=== PATIENT | male | born 1945 | race Caucasian/White ===

== ENCOUNTER → 2016-12-17 | Outpatient (CLI) | payer MEDICARE ==
--- NOTE | 2016-12-17 09:51 | FL ---
EXAMINATION: Cervical and Thoracic Esophagram DATE OF EXAM: 12/17/2016 9:42 AM CLINICAL INDICATION: 71-year-old male with dysphasia to solid foods with sticking at the mid chest [place]. COMPARISON: None Total Fluoroscopy Time: 1.8 minutes FINDINGS: The swallowing mechanism is normal and hypopharyngeal anatomy is preserved. The cervical and thoracic portions have a normal course and caliber. No significant tertiary peristalsis is seen. However, secondary stripping waves are slightly blunted causing some delay in clearance of contrast from the esophagus when the patient is supine. The mucosa is normal and no persistent filling defect is encountered. There is a moderate-sized hiatal hernia. Valsalva and positional maneuvers demonstrate mild gastroeso phageal reflux. IMPRESSION: 1. No suspicious narrowing or mucosal lesion seen. 2. Moderate-sized hiatal hernia with mild gastroesophageal reflux. 3. Slight blunting of the normal secondary stripping waves causing some delay in clearance of contras t when the patient is supine.
== END | disposition home or self-care (01) ==
LOC: RADFLWHC 08:46
PROVIDERS: ATTEND Family Medicine
DX: K21.9 Gastro-esophageal reflux disease without esophagitis (principal); K44.9 Diaphragmatic hernia without obstruction or gangrene
CPT/HCPCS: 74220

== ENCOUNTER 2017-01-27 10:17 | Observation (INO) | payer MEDICARE ==
[2017-01-27] MEDS ORDERED: SODIUM CHLORIDE 0.9% 1,000 ML IV STA (10:26)
--- NOTE | 2017-01-27 10:30 | ED ---
General Adult HPI - General Chief complaint: Back Pain/Injury Stated complaint: Back Pain Time Seen by Provider: 01/27/17 10:19 Source: patient, family, RN notes reviewed Mode of arrival: EMS Limitations: no limitations - History of Present Illness Initial comments: Chief complaint and history of present illness this is a 71-year-old male here with his . The patient reports he was feeling well this morning. Became mildly diaphoretic mildly nauseated. He also states that for the past several months she's been not in general feeling well he describes as feeling fuzzy in the morning for 3 hours and he gets better in the afternoon. he reports she had a stress test several weeks ago he does not know the results as of yet. He does state is able to walk up and down stairs most long walk around his property without chest pain or problems. - Related Data Allergies Allergy/AdvReac Type Severity Reaction Status Date / Time No Known Allergies Allergy Verified 01/27/17 10:27 Review of Systems ROS Statement: Those systems with pertinent positive or pertinent negative responses have been documented in the HPI. Review of systems. No headache or visual acuity changes. No chest pain complained of. Denies any pressure. Has mid back discomfort. 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 Nausea earlier mildly sweaty but again without any pressures anywhere. Slight dizziness at that time. No neuro deficits. All systems were reviewed Past medical problems no surgeries. He does get treated for hypertension. He had his metoprolol dropped from 50-25 mg was thinking that over the past several months to metoprolol is making him feel different. Family history noncontributory. Patient has no known ALLERGIES. Nonsmoker ROS Other: All systems not noted in ROS Statement are negative. Past Medical History Past Medical History: Hyperlipidemia, Hypertension History of Any Multi-Drug Resistant Organisms: None Reported Past Surgical History: No Surgical Hx Reported Past Psychological History: No Psychological Hx Reported Smoking Status: Never smoker Past Alcohol Use History: Occasional Past Drug Use History: None Reported General Exam Limitations: no limitations Course Vital Signs 01/27/17 01/27/17 10:21 12:29 Temperature 98.5 F Pulse Rate 98 67 Respiratory 16 16 Rate Blood Pressure 116/66 139/71 O2 Sat by Pulse 97 99 Oximetry EKG Findings - EKG Comments: EKG Findings:: EKG was done and reviewed at 1134 showing normal sinus rhythm is no acute ST elevation no ectopy no ischemic changes. Rate 87 AL interval 208 QRS 94 QT [address] Redman Medical Decision Making - Medical Decision Making Medical decision making; patient's white count is 11 hemoglobin 14 hematocrit of 40 with an elevated d-dimer 2.09. Potassium 4.3 BUN 9 creatinine 0.8 GFR greater than 60. Troponin less than 0.012. Amylase lipase normal limits. The patient did have a TSH done approximately 40 days ago at the time was normal at 0.676.repeat TSH is lower today. And T4 is normal at 0.91. Troponin less than 0.012. CK MB and CK are normal. X-ray of the chest was done AP and lateral views. Reviewed radiologist his findings are; patient is rotated. Probable chondroid lesion in the proximal metaphysis of the right humerus. This isn't completely visualized. There is no pneumothorax or pleural effusion. Pulmonary vascularity and arnaldo within normal limits. No focal pneumonia. Prominent lung biopsy suggest COPD. Impression no acute cardiopulmonary process. Additional findings above. As read by Dr. Herring CT of the chest and abdomen was done to try to rule out evidence of aortic dissection or pulmonary in wasn't. The radiologist's findings are the aorta is of normal caliber. No evidence of aneurysm or dissection. Atherosclerotic changes noted. Pulmonary arteries suboptimally enhanced due to aortic technique. No central pulmonary embolus. Many branches are nondiagnostic. Hypertrophic and degenerative changes of the spine. Gallstones noted. Lungs are clear with no pneumothorax or consolidation. No pleural effusion. The heart is enlarged and there is a hiatal hernia. Bowel gas pattern is nonspecific there is evidence of mild inflammatory changes with a small amount of fluid in the right lower quadrant suspicious for mild diverticulitis. Appendix is not seen. Adrenal glands, spleen, liver and pancreas have normal appearance. No free air. Hiatal hernia noted. Impression #1 no evidence of aortic aneurysm or dissection. #2 central pulmonary arteries are patent. Due to technique secondary to distal branches are nondiagnostic. Cholelithiasis. Number for there is small amount of fluid in the right lower quadrant which appears to be associated with redundant sigmoid colon extending into the right abdomen there is bowel wall thickening and mild inflammatory change. Correlate for diverticulitis. Underlying mucosal lesion or mass not excluded follow-up to resolution or with direct visualization. As read by Dr. Nair patient be admitted and treated for diverticulitis . Serial cardiac enzymes and troponin will also be requested. - Lab Data Result diagrams: 01/27/17 10:33 01/27/17 10:33 Lab Results 01/27/17 01/27/17 01/27/17 Range/Units 10:33 10:33 10:33 WBC 11.2 H (3.8-10.6) k/uL RBC 4.24 L (4.30-5.90) m/uL Hgb 14.6 (13.0-17.5) gm/dL Hct 40.8 (39.0-53.0) % MCV 96.3 (80.0-100.0) fL MCH 34.4 (25.0-35.0) pg MCHC 35.8 (31.0-37.0) g/dL RDW 12.9 (11.5-15.5) % Plt Count 209 (150-450) k/uL Neutrophils % 93 % Lymphocytes % 1 % Monocytes % 4 % Eosinophils % 1 % Basophils % 0 % Neutrophils # 10.4 H (1.3-7.7) k/uL Lymphocytes # 0.1 L (1.0-4.8) k/uL Monocytes # 0.5 (0-1.0) k/uL Eosinophils # 0.1 (0-0.7) k/uL Basophils # 0.0 (0-0.2) k/uL Manual Slide Review Performed Toxic Granulation Present PT (9.0-12.0) sec INR (<1.1) APTT (22.0-30.0) sec D-Dimer (<0.60) mg/L FEU Sodium 135 L (137-145) mmol/L Potassium 4.3 (3.5-5.1) mmol/L Chloride 99 (98-107) mmol/L Carbon Dioxide 27 (22-30) mmol/L Anion Gap 9 mmol/L BUN 16 (9-20) mg/dL Creatinine 0.80 (0.66-1.25) mg/dL Est GFR (MDRD) Af Amer >60 (>60 ml/min/1.73 sqM) Est GFR (MDRD) Non-Af >60 (>60 ml/min/1.73 sqM) Glucose 112 H (74-99) mg/dL Calcium 8.6 (8.4-10.2) mg/dL Magnesium 1.7 (1.6-2.3) mg/dL Total Bilirubin 0.5 (0.2-1.3) mg/dL AST 18 (17-59) U/L ALT 28 (21-72) U/L Alkaline Phosphatase 69 (38-126) U/L Total Creatine Kinase 94 (55-170) U/L CK-MB (CK-2) 1.1 (0.0-2.4) ng/mL CK-MB (CK-2) Rel Index 1.2 Troponin I <0.012 (0.000-0.034) ng/mL NT-Pro-B Natriuret Pep pg/mL Total Protein 6.3 (6.3-8.2) g/dL Albumin 4.0 (3.5-5.0) g/dL Amylase 59 (30-110) U/L Lipase 62 (23-300) U/L TSH 0.274 L (0.465-4.680) mIU/L Free T4 0.91 (0.78-2.19) ng/dL Urine Color Urine Appearance (Clear) Urine pH (5.0-8.0) Ur Specific [place] (1.001-1.035) Urine Protein (Negative) Urine Glucose (UA) (Negative) Urine Ketones (Negative) Urine Blood (Negative) Urine Nitrite (Negative) Urine Bilirubin (Negative) Urine Urobilinogen (<2.0) mg/dL Ur Leukocyte Esterase (Negative) 01/27/17 01/27/17 01/27/17 Range/Units 10:33 10:33 12:45 WBC (3.8-10.6) k/uL RBC (4.30-5.90) m/uL Hgb (13.0-17.5) gm/dL Hct (39.0-53.0) % MCV (80.0-100.0) fL MCH (25.0-35.0) pg MCHC (31.0-37.0) g/dL RDW (11.5-15.5) % Plt Count (150-450) k/uL Neutrophils % % Lymphocytes % % Monocytes % % Eosinophils % % Basophils % % Neutrophils # (1.3-7.7) k/uL Lymphocytes # (1.0-4.8) k/uL Monocytes # (0-1.0) k/uL Eosinophils # (0-0.7) k/uL Basophils # (0-0.2) k/uL Manual Slide Review Toxic Granulation PT 9.6 (9.0-12.0) sec INR 0.9 (<1.1) APTT 22.1 (22.0-30.0) sec D-Dimer 2.09 H (<0.60) mg/L FEU Sodium (137-145) mmol/L Potassium (3.5-5.1) mmol/L Chloride (98-107) mmol/L Carbon Dioxide (22-30) mmol/L Anion Gap mmol/L BUN (9-20) mg/dL Creatinine (0.66-1.25) mg/dL Est GFR (MDRD) Af Amer (>60 ml/min/1.73 sqM) Est GFR (MDRD) Non-Af (>60 ml/min/1.73 sqM) Glucose (74-99) mg/dL Calcium (8.4-10.2) mg/dL Magnesium (1.6-2.3) mg/dL Total Bilirubin (0.2-1.3) mg/dL AST (17-59) U/L ALT (21-72) U/L Alkaline Phosphatase (38-126) U/L Total Creatine Kinase (55-170) U/L CK-MB (CK-2) (0.0-2.4) ng/mL CK-MB (CK-2) Rel Index Troponin I (0.000-0.034) ng/mL NT-Pro-B Natriuret Pep 81 pg/mL Total Protein (6.3-8.2) g/dL Albumin (3.5-5.0) g/dL Amylase (30-110) U/L Lipase (23-300) U/L TSH (0.465-4.680) mIU/L Free T4 (0.78-2.19) ng/dL Urine Color Yellow Urine Appearance Clear (Clear) Urine pH 7.0 (5.0-8.0) Ur Specific [place] 1.020 (1.001-1.035) Urine Protein Trace H (Negative) Urine Glucose (UA) Negative (Negative) Urine Ketones Negative (Negative) Urine Blood Negative (Negative) Urine Nitrite Negative (Negative) Urine Bilirubin Negative (Negative) Urine Urobilinogen <2.0 (<2.0) mg/dL Ur Leukocyte Esterase Negative (Negative) Disposition Clinical Impression: Rectosigmoid diverticulitis Disposition: ADMITTED IP TO THIS HOSP Condition: Fair Referrals: Maria E Lawler DO [Primary Care Provider] - 1-2 days
[2017-01-27 10:50] LABS: Basophils % (A) 0 %; CH 34.3; CHCM 35.7; Eosinophils # (A) 0.1 k/uL (0-0.7); Eosinophils % (A) 1 %; HCT 40.8 % (39.0-53.0); HDW 2.54; HGB 14.6 gm/dL (13.0-17.5); Luc # (Auto) 0.06; Luc % (Auto) 1; Lymphocytes # (A) 0.1 k/uL (1.0-4.8); Lymphocytes % (A) 1 %; MCH 34.4 pg (25.0-35.0); MCHC 35.8 g/dL (31.0-37.0); MCV 96.3 fL (80.0-100.0); Mean Platelet Volume 6.4; Monocytes # (A) 0.5 k/uL (0-1.0); Monocytes % (A) 4 %; Neutrophils # (A) 10.4 k/uL (1.3-7.7); Neutrophils % (A) 93 %; RBC 4.24 m/uL (4.30-5.90); RDW 12.9 % (11.5-15.5); WBC 11.2 k/uL (3.8-10.6); WBC (Perox) 11.47
[2017-01-27 10:59] LABS: ALT 28 U/L (21-72); AST 18 U/L (17-59); Alkaline Phosphatase 69 U/L (38-126); Amylase 59 U/L (30-110); Anion Gap 9 mmol/L; Blood Urea Nitrogen 16 mg/dL (9-20); Calcium 8.6 mg/dL (8.4-10.2); Carbon Dioxide 27 mmol/L (22-30); Chloride 99 mmol/L (98-107); Glucose 112 mg/dL (74-99); Magnesium 1.7 mg/dL (1.6-2.3); Non-African American GFR(MDRD) >60 (>60 ml/min/1.73 sqM); Potassium 4.3 mmol/L (3.5-5.1); Sodium 135 mmol/L (137-145); Total Bilirubin 0.5 mg/dL (0.2-1.3); Total Protein 6.3 g/dL (6.3-8.2)
--- NOTE | 2017-01-27 10:59 | XR ---
EXAMINATION TYPE: XR chest 2V DATE OF EXAM: 01/27/2017 COMPARISON: NONE HISTORY: Chest pain and nausea TECHNIQUE: Frontal and lateral views of the chest are obtained. FINDINGS: Patient is rotated. Probable chondroid lesion in the proximal metaphysis of the right chelita johnson. This is incompletely visualized. There is no pneumothorax or pleural effusion. Pulmonary vascula rity and arnaldo within normal limits. No focal pneumonia. Prominent lung volumes suggest COPD. IMPRESSION: No acute cardiopulmonary process. Additional findings above.
[2017-01-27 11:03] LABS: Creatine Kinase 94 U/L (55-170)
[2017-01-27 11:04] LABS: Manual Review Performed
[2017-01-27 11:05] LABS: INR 0.9 (<1.1); Partial Thromboplastin Time 22.1 sec (22.0-30.0); Prothrombin Time 9.6 sec (9.0-12.0); Toxic Granulation Present
[2017-01-27 11:16] LABS: Creatine Kinase MB 1.1 ng/mL (0.0-2.4); Troponin I <0.012 ng/mL (0.000-0.034)
[2017-01-27] MEDS ORDERED: RX INFO: IV CONTRAST WAS GIVEN 1 EACH MISC MISCELLANE PRN (11:39)
[2017-01-27 12:54] LABS: Appearance,Urine Clear (Clear); Bilirubin,Urine Negative (Negative); Glucose,Urine (UA) Negative (Negative); Ketones,Urine Negative (Negative); Leukocyte Esterase,Urine Negative (Negative); Nitrite,Urine Negative (Negative); Protein,Urine Trace (Negative); UA Billing (MACRO vs. MICRO) CHEM; Urobilinogen,Urine <2.0 mg/dL (<2.0)
--- NOTE | 2017-01-27 13:18 | CT ---
EXAMINATION TYPE: CT angio thoracic/abd aorta DATE OF EXAM: 01/27/2017 12:56 PM COMPARISON: NONE HISTORY: Middle back pain and elevated Ddimer CT DLP: 1990.7 mGycm Automated exposure control for dose reduction was used. TECHNIQUE: Performed without and with IV Contrast, patient injected with 100 mL of Omnipaque 350. . FINDINGS: Aorta is of normal caliber. No evidence of aneurysm or dissection. Atherosclerotic changes noted. Pulmonary arteries are suboptimally enhanced due to aortic technique. No central pulmonary embolism. Many branches are nondiagnostic. Hypertrophic and degenerative change of the spine. Gallstones noted. Lungs are clear with no pneumothorax or consolidation. No pleural effusion. The heart is enlarged and there is a hiatal hernia. Bowel gas pattern is nonspecific there is evidence of mild inflammatory change with a small amount of fluid in the right lower quadrant suspicious for mild diverticulitis. Appendix is not seen. Adrenal glands, spleen, liver and pancreas have a normal appearance. No free air. Hiatal hernia noted. IMPRESSION: 1. No evidence of aortic aneurysm or dissection. 2. Central pulmonary arteries are patent. Due to technique secondary and distal branches are nondiagn ostic. 3. Cholelithiasis. 4. There is a small amount of fluid in the right lower quadrant which appears to be associated with a n redundant sigmoid colon extending into the right abdomen there is bowel wall thickening and mild in flammatory change. Correlate for diverticulitis. Underlying mucosal lesion or mass not excluded follo w-up to resolution or with direct visualization.
[2017-01-27] MEDS ORDERED: HYDROmorphone 1 MG/ML 1 ML SYRINGE IV PRN (13:42)
[2017-01-27] MEDS ORDERED: NALOXONE 0.4 MG/ML 1 ML VIAL IV PRN (13:42)
[2017-01-27] MEDS ORDERED: ONDANSETRON 4 MG/2 ML VIAL IVP PRN (13:42)
[2017-01-27] MEDS ORDERED: LEVOFLOXACIN 500MG-D5W PMX 500 MG in DEXTROSE/WATER 1 100ML.BAG IVPB STA (13:46)
[2017-01-27] MEDS ORDERED: METOCLOPRAMIDE 5 MG/ML 2 ML VIAL IVP PRN (13:47)
[2017-01-27] MEDS ORDERED: metroNIDAZOLE-NS PMX 500 MG in SALINE 1 100ML.BAG IVPB STA (13:48)
[2017-01-27] MEDS: SODIUM CHLORIDE 0.9% 1,000 ML IV SCH (13:51)
[2017-01-27 14:48] VITALS: BMI 30.6
[2017-01-27] MEDS ORDERED: ACETAMINOPHEN TAB 500 MG TAB PO PRN (15:45)
[2017-01-27] MEDS ORDERED: HYDROcodone/APAP 5-325MG 1 EACH TAB PO PRN (15:46)
[2017-01-27 16:32] LABS: Creatine Kinase 77 U/L (55-170)
[2017-01-27 16:45] LABS: Creatine Kinase MB 0.8 ng/mL (0.0-2.4); Troponin I <0.012 ng/mL (0.000-0.034)
[2017-01-27] MEDS ORDERED: TEMAZEPAM 15 MG CAP PO PRN (20:09)
[2017-01-27] MEDS ORDERED: ALPRAZolam 0.25 MG TAB PO PRN (20:09)
[2017-01-27] MEDS: ATORVASTATIN 10 MG TAB PO SCH (21:10)
[2017-01-27] MEDS: HEPARIN SODIUM,PORCINE 5,000 UNIT/ML 1 ML VIAL SQ SCH (21:11)
[2017-01-27] MEDS: PIPERACILLIN-TAZOBACTAM 3.375 GM in DEXTROSE/WATER 1 50ML.BAG IVPB SCH (23:42)
[2017-01-28] MEDS: SODIUM CHLORIDE 0.9% 1,000 ML IV SCH ×2 (04:14→17:12)
[2017-01-28 07:40] LABS: Basophils % (A) 0 %; CH 33.8; Eosinophils # (A) 0.1 k/uL (0-0.7); Eosinophils % (A) 1 %; HCT 36.1 % (39.0-53.0); HDW 2.44; HGB 12.1 gm/dL (13.0-17.5); Luc # (Auto) 0.11; Luc % (Auto) 2; Lymphocytes # (A) 0.5 k/uL (1.0-4.8); Lymphocytes % (A) 10 %; MCH 33.5 pg (25.0-35.0); MCHC 33.6 g/dL (31.0-37.0); MCV 99.7 fL (80.0-100.0); Mean Platelet Volume 7.2; Monocytes # (A) 0.4 k/uL (0-1.0); Monocytes % (A) 8 %; Neutrophils # (A) 3.7 k/uL (1.3-7.7); Neutrophils % (A) 79 %; RBC 3.62 m/uL (4.30-5.90); RDW 13.4 % (11.5-15.5); WBC 4.7 k/uL (3.8-10.6); WBC (Perox) 4.96
[2017-01-28 07:46] LABS: Anion Gap 6 mmol/L; Blood Urea Nitrogen 14 mg/dL (9-20); Calcium 7.9 mg/dL (8.4-10.2); Carbon Dioxide 27 mmol/L (22-30); Chloride 102 mmol/L (98-107); Glucose 110 mg/dL (74-99); Non-African American GFR(MDRD) >60 (>60 ml/min/1.73 sqM); Potassium 3.5 mmol/L (3.5-5.1); Sodium 135 mmol/L (137-145)
[2017-01-28] MEDS: METOPROLOL SUCCINATE (ER) 25 MG TAB.ER.24H PO SCH (07:55)
[2017-01-28] MEDS: LISINOPRIL-HCTZ 20-25 MG 1 EACH TAB PO SCH (07:55)
[2017-01-28] MEDS: ASPIRIN 81 MG CHEW PO SCH (07:55)
[2017-01-28] MEDS: DOXAZOSIN 4 MG TAB PO SCH (07:55)
[2017-01-28] MEDS: PIPERACILLIN-TAZOBACTAM 3.375 GM in DEXTROSE/WATER 1 50ML.BAG IVPB SCH ×3 (07:56→23:13)
[2017-01-28] MEDS: HEPARIN SODIUM,PORCINE 5,000 UNIT/ML 1 ML VIAL SQ SCH ×2 (07:56→20:32)
[2017-01-28] MEDS ORDERED: PANTOPRAZOLE 40 MG/10 ML VIAL IV SCH (09:00)
[2017-01-28] MEDS ORDERED: GLUCOSAMINE SULFATE 500 MG PO SCH (09:00)
--- NOTE | 2017-01-28 11:07 | P.GSCN ---
History of Present Illness Consult date: 01/28/17 Reason for Consult: Diverticulitis History of present illness: This is a 71-year-old male who was admitted through the emergency room with complaints of abdominal pain. He is worked up with CAT scan found no evidence of diverticulitis. Patient states that he's had a previous history of diverticulosis for 5 years ago. He denies any significant abdominal pain. Review of Systems - Constitutional Reports as per HPI Past Medical History Past Medical History: Hyperlipidemia, Hypertension History of Any Multi-Drug Resistant Organisms: None Reported Past Surgical History: No Surgical Hx Reported Past Anesthesia/Blood Transfusion Reactions: No Reported Reaction Past Psychological History: No Psychological Hx Reported Smoking Status: Former smoker Past Alcohol Use History: Occasional Past Drug Use History: None Reported - Past Family History Mother Family Medical History: Diabetes Mellitus Additional Family Medical History / Comment(s): History of heart problems. Father Family Medical History: Cancer Additional Family Medical History / Comment(s): of cancer. Medications and Allergies Home Medications Medication Instructions Recorded Confirmed Type Ascorbic Acid [Vitamin C] 500 mg PO DAILY 01/27/17 01/27/17 History Aspirin [Adult Low Dose Aspirin EC] 81 mg PO DAILY 01/27/17 01/27/17 History Doxazosin [Cardura] 4 mg PO DAILY 01/27/17 01/27/17 History Glucosamine Sulfate 500 mg PO DAILY 01/27/17 01/27/17 History Lisinopril-Hctz 20-25 mg 1 tab PO DAILY 01/27/17 01/27/17 History [Zestoretic 20-25] Metoprolol Succinate [Toprol XL] 25 mg PO DAILY 01/27/17 01/27/17 History Simvastatin [Zocor] 20 mg PO HS 01/27/17 01/27/17 History Allergies Allergy/AdvReac Type Severity Reaction Status Date / Time No Known Allergies Allergy Verified 01/27/17 14:49 Surgical - Exam Vital Signs Temp Pulse Resp BP Pulse Ox 98.5 F 98 16 116/66 97 01/27/17 10:21 01/27/17 10:21 01/27/17 10:21 01/27/17 10:21 01/27/17 10:21 - General well developed, no distress - Eyes PERRL - ENT normal pinna - Neck no masses - Respiratory normal expansion - Cardiovascular Rhythm: regular - Abdomen Abdomen: soft, non tender Results - Labs 01/28/17 07:19 01/28/17 07:19 Abnormal Lab Results - Last 24 Hours (Table) 01/27/17 01/27/17 01/27/17 Range/Units 10:33 10:33 10:33 WBC 11.2 H (3.8-10.6) k/uL RBC 4.24 L (4.30-5.90) m/uL Hgb (13.0-17.5) gm/dL Hct (39.0-53.0) % Neutrophils # 10.4 H (1.3-7.7) k/uL Lymphocytes # 0.1 L (1.0-4.8) k/uL D-Dimer 2.09 H (<0.60) mg/L FEU Sodium 135 L (137-145) mmol/L Glucose 112 H (74-99) mg/dL Calcium (8.4-10.2) mg/dL TSH 0.274 L (0.465-4.680) mIU/L Urine Protein (Negative) 01/27/17 01/28/17 01/28/17 Range/Units 12:45 07:19 07:19 WBC (3.8-10.6) k/uL RBC 3.62 L (4.30-5.90) m/uL Hgb 12.1 L (13.0-17.5) gm/dL Hct 36.1 L (39.0-53.0) % Neutrophils # (1.3-7.7) k/uL Lymphocytes # 0.5 L (1.0-4.8) k/uL D-Dimer (<0.60) mg/L FEU Sodium 135 L (137-145) mmol/L Glucose 110 H (74-99) mg/dL Calcium 7.9 L (8.4-10.2) mg/dL TSH (0.465-4.680) mIU/L Urine Protein Trace H (Negative) Diabetes panel 01/27/17 01/28/17 Range/Units 10:33 07:19 Sodium 135 L 135 L (137-145) mmol/L Potassium 4.3 3.5 (3.5-5.1) mmol/L Chloride 99 102 (98-107) mmol/L Carbon Dioxide 27 27 (22-30) mmol/L BUN 16 14 (9-20) mg/dL Creatinine 0.80 0.74 (0.66-1.25) mg/dL Glucose 112 H 110 H (74-99) mg/dL Calcium 8.6 7.9 L (8.4-10.2) mg/dL AST 18 (17-59) U/L ALT 28 (21-72) U/L Alkaline Phosphatase 69 (38-126) U/L Total Protein 6.3 (6.3-8.2) g/dL Albumin 4.0 (3.5-5.0) g/dL Thyroid panel 01/27/17 Range/Units 10:33 TSH 0.274 L (0.465-4.680) mIU/L Calcium panel 01/27/17 01/28/17 Range/Units 10:33 07:19 Calcium 8.6 7.9 L (8.4-10.2) mg/dL Albumin 4.0 (3.5-5.0) g/dL Pituitary panel 01/27/17 01/28/17 Range/Units 10:33 07:19 Sodium 135 L 135 L (137-145) mmol/L Potassium 4.3 3.5 (3.5-5.1) mmol/L Chloride 99 102 (98-107) mmol/L Carbon Dioxide 27 27 (22-30) mmol/L BUN 16 14 (9-20) mg/dL Creatinine 0.80 0.74 (0.66-1.25) mg/dL Glucose 112 H 110 H (74-99) mg/dL Calcium 8.6 7.9 L (8.4-10.2) mg/dL TSH 0.274 L (0.465-4.680) mIU/L Adrenal panel 01/27/17 01/28/17 Range/Units 10:33 07:19 Sodium 135 L 135 L (137-145) mmol/L Potassium 4.3 3.5 (3.5-5.1) mmol/L Chloride 99 102 (98-107) mmol/L Carbon Dioxide 27 27 (22-30) mmol/L BUN 16 14 (9-20) mg/dL Creatinine 0.80 0.74 (0.66-1.25) mg/dL Glucose 112 H 110 H (74-99) mg/dL Calcium 8.6 7.9 L (8.4-10.2) mg/dL Total Bilirubin 0.5 (0.2-1.3) mg/dL AST 18 (17-59) U/L ALT 28 (21-72) U/L Alkaline Phosphatase 69 (38-126) U/L Total Protein 6.3 (6.3-8.2) g/dL Albumin 4.0 (3.5-5.0) g/dL - Imaging CT scan - abdomen: report reviewed (All stones, hiatal hernia, diverticulitis) Assessment and Plan Plan: Diverticula is. Patient will receive IV antibiotics. We will plan for outpatient colonoscopy once medically stable
[2017-01-28] MEDS: ASCORBIC ACID 500 MG TAB PO SCH (11:30)
--- NOTE | 2017-01-28 11:51 | HP ---
DATE OF ADMISSION: 01/27/2017 CHIEF COMPLAINT: Nausea, abdominal pain. HISTORY OF PRESENT ILLNESS: This 71-year-old gentleman with a past medical history of hypertension, hyperlipidemia, history of nicotine dependence, being followed Dr. Lawler in the outpatient setting, apparently overslept yesterday and the patient woke up this morning. The patient had some nausea. The patient felt vomiting, but subsequently patient felt dizzy. The patient had abdominal cramps and pain. The patient had also pain radiating into the scapula. Patient came to [facility] and admitted to the hospital for further evaluation and treatment. The patient had a CT scan of the chest which did not show any acute abnormality including a pulmonary embolism or aortic dissection but however, cholelithiasis and diverticulitis suspected. The patient admitted to the hospital for further evaluation and treatment. There is no history of any fever, rigors. No history of headache, loss of consciousness or seizures. The patient also follows with Dr. Chong in the outpatient setting. Recent stress test results are not available. Past medical history of hypertension, hyperlipidemia, dizziness, recurrent in the morning. Medications prior to admission include: 1. Toprol-XL 25 mg daily. 2. Cardura 4 mg p.o. daily. 3. Ecotrin 81 mg daily. 4. Vitamin C 500 daily. 5. Zocor 20 mg at bedtime. 6. Zestoretic 06/25 one p.o. daily. 7. Glucosamine 500 mg p.o. daily. ALLERGIES: None. FAMILY HISTORY: History of diabetes mellitus and cardiac problems. SOCIAL HISTORY: The patient is a jarrett. Previous history of smoking. No history of current smoking or alcohol intake. REVIEW OF SYSTEMS: ENT: No diminishing hearing. No diminished vision. CARDIOVASCULAR: As mentioned earlier. RESPIRATORY: As mentioned earlier. GI: As mentioned earlier. : No dysuria. Nervous system: No numbness, weakness. Allergy/Immunology: No asthma or hayfever. MUSCULOSKELETAL: As mentioned earlier. HEMATOLOGY/ONCOLOGY: No history of anemia. ENDOCRINE: No history of diabetes or hypothyroidism. CONSTITUTIONAL: As mentioned earlier. DERMATOLOGY: Negative. RHEUMATOLOGY: Negative. PSYCHIATRY: As mentioned earlier. PHYSICAL EXAMINATION: The patient is alert and oriented times three. Pulse 93, blood pressure 103/64. Temperature 98.8, pulse ox 94% on room air. HEENT: Conjunctivae normal. NECK: No jugular venous distention. CARDIOVASCULAR: S1, S2 muffled. No S3, no S4. RESPIRATORY: Breath sounds diminished at the bases. Bilateral scattered rhonchi and crackles. ABDOMEN: Soft, mild diffuse distention. Mild diffuse discomfort on palpation. No guarding. No rigidity. No mass palpable. Legs: No edema, no swelling. CENTRAL NERVOUS SYSTEM: Higher functions as mentioned earlier. Moves all four limbs. No focal deficits. LYMPHATICS: No lymph nodes palpable in the neck, axillae or groin. SKIN: No ulcer, rash or bleeding. LABS: WBC 11.2, hemoglobin 14.6. D-dimer is 2.6. Sodium 135, glucose 112. The TSH 0.2750 and free T4 is 0.9. UA noted. ASSESSMENT: 1. Acute abdominal pain, possible acute diverticulitis with severe acute respiratory syndrome. 2. Increased WBC. 3. Interscapular pain without any evidence of myocardial infarction. 4. Increased d-dimer with no evidence of pulmonary embolism. 5. Hyponatremia. 6. History of recent stress test. 7. Hypertension, essential. 8. Hyperlipidemia. 9. Remote history of nicotine dependence. 10. FULL CODE. RECOMMENDATIONS AND DISCUSSION: In this 71-year-old gentleman who presented with multiple complex medical issues, we will monitor the patient closely. Continue current medications. Continue symptomatic treatment. Broad spectrum IV antibiotics. Cultures. I would also recommend surgical evaluation. One set of Troponins. Otherwise, guarded prognosis. I would also recommend cultures as well. Symptomatic treatment will be provided. Copy of dictation being forwarded to Dr. Lawler who is the primary physician. See orders for further details.
--- NOTE | 2017-01-28 18:57 | PN ---
DATE OF SERVICE: 01/28/2017 This 71-year-old gentleman who was admitted with nausea and abdominal pain, possible acute diverticulitis, treated with IV antibiotics. Patient improved significantly. No chest pain. No palpitations. No fever. On exam, alert, oriented x3. Pulse 62, blood pressure 130/60, respirations 16, temperature 97.9, pulse ox 96% on room air. HEENT: Conjunctivae normal. NECK: Supple. No JVD. CARDIOVASCULAR: S1 and S2 muffled. LUNGS: Breath sounds diminished in the bases. No rhonchi, no crackles. ABDOMEN: Soft, nontender. No mass palpable. EXTREMITIES: No edema. LABS: WBC 4.7, hemoglobin 12.1, sodium 135. ASSESSMENT: 1. Acute abdominal pain with possible acute diverticulitis with SIRS, present on admission. 2. Increased WBC. 3. Intrascapular pain without evidence of myocardial infarction. 4. Increased d-dimer without evidence of pulmonary embolism. 5. Hyponatremia. 6. History of recent stress test. 7. Hypertension, essential. 8. Hyperlipidemia. 9. Remote history of nicotine dependence. 10. Full code. RECOMMENDATIONS AND DISCUSSION: Continue current medications. Continue with monitoring and symptomatic treatment. Otherwise at this time I would recommend to continue with IV antibiotics. Continue with the diet per surgery. Guarded prognosis. Further recommendations to follow. Discussed with family who understand.
[2017-01-28 19:48] LABS: Creatine Kinase 65 U/L (55-170)
[2017-01-28 20:00] LABS: Troponin I <0.012 ng/mL (0.000-0.034)
[2017-01-28] MEDS: ATORVASTATIN 10 MG TAB PO SCH (20:32)
[2017-01-29] MEDS: SODIUM CHLORIDE 0.9% 1,000 ML IV SCH (04:20)
[2017-01-29] MEDS: HEPARIN SODIUM,PORCINE 5,000 UNIT/ML 1 ML VIAL SQ SCH (08:08)
[2017-01-29] MEDS: PIPERACILLIN-TAZOBACTAM 3.375 GM in DEXTROSE/WATER 1 50ML.BAG IVPB SCH (08:08)
[2017-01-29] MEDS: DOXAZOSIN 4 MG TAB PO SCH (08:09)
[2017-01-29] MEDS: ASPIRIN 81 MG CHEW PO SCH (08:09)
[2017-01-29] MEDS: METOPROLOL SUCCINATE (ER) 25 MG TAB.ER.24H PO SCH (08:09)
[2017-01-29] MEDS: LISINOPRIL-HCTZ 20-25 MG 1 EACH TAB PO SCH (08:09)
[2017-01-29 08:17] VITALS: BP 137/80; PULSE 61; RESP 16; TEMP 97.7
[2017-01-29 08:56] LABS: Anion Gap 6 mmol/L; Blood Urea Nitrogen 10 mg/dL (9-20); Calcium 8.7 mg/dL (8.4-10.2); Carbon Dioxide 28 mmol/L (22-30); Chloride 103 mmol/L (98-107); Glucose 98 mg/dL (74-99); Non-African American GFR(MDRD) >60 (>60 ml/min/1.73 sqM); Potassium 4.1 mmol/L (3.5-5.1); Sodium 137 mmol/L (137-145)
[2017-01-29] MEDS ORDERED: PANTOPRAZOLE 40 MG TABLET PO SCH (09:00)
[2017-01-29 09:32] LABS: Basophils % (A) 0 %; CH 34.1; Eosinophils # (A) 0.2 k/uL (0-0.7); Eosinophils % (A) 4 %; HCT 38.7 % (39.0-53.0); HDW 2.47; Luc # (Auto) 0.09; Luc % (Auto) 2; Lymphocytes # (A) 0.6 k/uL (1.0-4.8); Lymphocytes % (A) 15 %; MCH 33.9 pg (25.0-35.0); MCHC 33.7 g/dL (31.0-37.0); MCV 100.7 fL (80.0-100.0); Mean Platelet Volume 6.7; Monocytes # (A) 0.4 k/uL (0-1.0); Monocytes % (A) 8 %; Neutrophils % (A) 71 %; RBC 3.84 m/uL (4.30-5.90); RDW 13.4 % (11.5-15.5); WBC 4.3 k/uL (3.8-10.6); WBC (Perox) 4.72
[2017-01-29] MEDS: ASCORBIC ACID 500 MG TAB PO SCH (12:17)
--- NOTE | 2017-01-29 13:43 | P.PN ---
Subjective Patient is a 71-year-old male admitted with chief complaint of nausea associated with cold sweats. Patient was found to have evidence of sigmoid colon diverticulitis. Upon examination, patient is feeling well. Denies chills , fevers, nausea, vomiting, or abdominal pain. Patient is passing flatus without bowel movement. Patient is tolerating a regular diet. Afebrile. No evidence of leukocytosis. Objective - Vital Signs Vital signs: Vital Signs Temp 97.7 F 01/29/17 07:00 Pulse 61 01/29/17 07:00 Resp 16 01/29/17 07:00 BP 137/80 01/29/17 07:00 Pulse Ox 96 01/29/17 07:00 Intake & Output 01/28/17 01/29/17 01/29/17 18:59 06:59 18:59 Intake Total 750 600 Output Total 350 2650 Balance -350 -1900 600 Intake: Oral 750 600 Output: Urine 350 2650 Other: Voiding Method Toilet Toilet # Voids 1 1 - Exam GENERAL: Pt awake and alert, well-appearing, well-nourished, and in no acute distress. LUNGS: Breath sounds clear to auscultation bilaterally. No wheezes, rales, or rhonchi. HEART: Heart S1, S2, no S3 or S4. No murmurs, rubs or gallops. ABDOMEN: Soft, nontender, nondistended, normoactive bowel sounds. No guarding, no rebound. No masses or organomegaly appreciated. NEUROLOGICAL: Pt oriented x 3. - Labs CBC & Chem 7: 01/29/17 07:46 01/29/17 07:46 Labs: Abnormal Lab Results - Last 24 Hours (Table) 01/29/17 Range/Units 07:46 RBC 3.84 L (4.30-5.90) m/uL Hct 38.7 L (39.0-53.0) % MCV 100.7 H (80.0-100.0) fL Lymphocytes # 0.6 L (1.0-4.8) k/uL Microbiology - Last 24 Hours (Table) 01/27/17 21:20 Urine Culture - Final Urine,Voided 01/27/17 20:19 Blood Culture - Preliminary Blood No Growth after 24 hours Assessment and Plan Plan: Impression: 1. Sigmoid colon diverticulitis, improving. Plan: Continue to monitor patient. Continue antibiotics. From a surgical standpoint , patient is cleared for discharge. Patient to follow-up with Dr. Lindsey in the outpatient setting. The above impression and plan have been discussed and directed by Dr. Duran. Prem WETZEL acting as scribe for Dr. Duran.
--- NOTE | 2017-01-30 07:40 | DS ---
DATE OF ADMISSION: 01/27/2017 DATE OF DISCHARGE: 01/29/2017 DATE OF SERVICE: 01/29/2017 FINAL DIAGNOSES: 1. Acute abdominal pain, possible acute diverticulitis with systemic inflammatory response syndrome, present on admission. 2. Increased WBC. 3. Intrascapular pain without any evidence of myocardial infarction. 4. Increased D-dimer without any evidence of pulmonary embolism. 5. Hyponatremia. 6. History of recent stress test. 7. Hypertension, essential. 8. Hyperlipidemia. 9. Remote history of nicotine dependence. 10. FULL CODE. DISCHARGE DISPOSITION: The patient will be discharged in a stable condition with guarded prognosis. HISTORY OF PRESENT ILLNESS: This 71-year-old gentleman with a past medical history of multiple medical problems admitted with abdominal pain, multiple symptomatology. Patient was treated for acute diverticulitis with antibiotics, improved significantly. CAT scan was reviewed and. On exam, vitals are stable. CARDIOVASCULAR SYSTEM: S1, S2 muffled. ABDOMEN: Soft. NERVOUS SYSTEM: No focal deficits. DISCHARGE ADVICE: 1. Diet is cardiac. 2. Activity limited until followup. 3. Follow up with Dr. Lawler in 2 to 3 days. 4. Follow up with Dr. Lindsey in one week. MEDICATIONS: 1. Pcllrkpol146 mg p.o. b.i.d. for 5 days. 2. Vitamin C 500 mg daily. 3. Ecotrin 81 mg p.o. daily. 4. Cardura 4 mg p.o. daily. 5. Glucosamine 500 mg p.o. daily. 6. [place] 5 mg q.6 p.r.n. 7. Lisinopril hydrochlorothiazide 20/25 p.o. daily. 8. Toprol XL 25 mg p.o. daily. 9. Zocor 20 mg p.o. q.h.s. Once again, the patient will be discharged in stable condition with guarded prognosis. MTDD
== END 2017-01-29 14:15 | disposition home or self-care (01) ==
LOC: EC 10:17 → 4MS4W 13:45
PROVIDERS: ADMIT Hospitalist; ATTEND Hospitalist
DX: K57.32 Diverticulitis of large intestine without perforation or abscess without bleeding (principal); M54.9 Dorsalgia, unspecified; I10 Essential (primary) hypertension; E78.5 Hyperlipidemia, unspecified; K44.9 Diaphragmatic hernia without obstruction or gangrene; K80.20 Calculus of gallbladder without cholecystitis without obstruction; R07.9 Chest pain, unspecified; Z87.891 Personal history of nicotine dependence; R42 Dizziness and giddiness; Z79.899 Other long term (current) drug therapy; Z82.49 Family history of ischemic heart disease and other diseases of the circulatory system; E87.1 Hypo-osmolality and hyponatremia; Z79.82 Long term (current) use of aspirin
CPT/HCPCS: 96361; 96366 ×4; 96367; 96372 ×3; 96375; 96365; 99285; 36415; 93005; 85379; 84439; 83880; 80053; 80048 ×2; 84443; 82150; 82550 ×2; 82553 ×2; 83690; 83735; 84484 ×2; 85025 ×3; 85610; 85730; 81003; 87040; 87086; 71020; 75635; 71275; G0378 ×3; J1644 ×3; Q9967; J1956; J2543 ×3; C9113

== ENCOUNTER 2017-02-18 09:27 | Day surgery (SDC) | payer MEDICARE ==
[2017-02-14 15:16] VITALS: BMI 30.2
[~2017-02-18 09:27] MED LIST: LACTATED RINGERS 1,000 ML IV SCH
[2017-02-18 10:12] VITALS: TEMP 97.8
[2017-02-18] MEDS ORDERED: LIDOCAINE 1% 20 ML VIAL (10MG/ML) FOR IV START INTRADERMA ONE (10:32)
[2017-02-18] MEDS ORDERED: GLYCOPYRROLATE 0.2 MG/ML 2 ML VIAL ONE (10:33)
[2017-02-18] MEDS ORDERED: PROPOFOL 10 MG/ML 20 ML VIAL IV ONE (10:33)
[2017-02-18] MEDS ORDERED: LIDOCAINE 1% INJ 10MG/ML (20 ML MDV) ONE (10:33)
--- NOTE | 2017-02-18 11:01 | P.PCN ---
Date of Procedure: 02/18/17 Preoperative Diagnosis: Postoperative Diagnosis: Procedure(s) Performed: Procedure: Esophagogastroduodenoscopy and biopsy. Preoperative diagnosis: Dysphagia. Postoperative diagnosis: 1. Hiatal hernia and distal esophagitis and early esophageal stricture. 2. Mild gastritis and minimal duodenitis. 3. Multiple biopsies obtained from the duodenum, antrum and esophagus. Preparation and sedation were provided by anesthesia. Brief clinical history: The patient is a 71-year-old male who I have evaluated in the office last month for solid food dysphagia off around 2 months duration, mostly solid meats. He denied history of reflux. No other alarm symptoms. He has been complaining of cough after he eats and the barium swallow December 17 showed hiatal hernia. This evaluation is to assess for complicated reflux disease or other pathology. Procedure: With the patient on his left lateral decubitus position and after informed consent and adequate sedation, I passed the Olympus-GIF 160 video upper endoscope through the cricopharyngeus down the esophagus. GE junction was around 36 cm from the incisors and there was a hiatal hernia measuring around 2-3 cm. The distal esophagus showed broad erosions and superficial ulcerations and edema and friability of the mucosa and there was a polypoid area at the junction with the stomach more on the cardia side. Overall, the findings were more pointing towards an inflammatory problem, such as acid reflux , versus neoplasia but I did obtain multiple biopsies anyway. The endoscope was then passed into the stomach which was insufflated with air and inspected in detail including the retroflex view in the cardia. There was some mottling and erythema in the antrum but no ulcers or erosions. Pyloric channel, duodenal bulb, post bulbar area and descending duodenum showed minimal erythema. Because of his symptoms, I obtained multiple biopsies from the duodenum, antrum and as well as several biopsies from the distal esophagus/GE junction area. No dilation was indicated. The patient tolerated the procedure well. Plan: I summarized these findings to the patient and I suggested that we maximize his antireflux diet and measures as well as his anti-acid therapy. Will await biopsy results, but even if those show acid inflammation and inflammatory changes, I would consider repeat endoscopy in 2-3 months to assess and that they are not and missing neoplasia and to guide his future therapy for reflux. I will keep you updated on his progress. Implants: Indications for Procedure: Operative Findings: Description of Procedure:
[2017-02-18 11:04] VITALS: RESP 18
[2017-02-18 11:16] VITALS: BP 114/74; PULSE 55
== END 2017-02-18 11:37 | disposition home or self-care (01) ==
LOC: ORWHC2ENDO 09:27
DX: K22.10 Ulcer of esophagus without bleeding (principal); K22.2 Esophageal obstruction; K29.50 Unspecified chronic gastritis without bleeding; K29.80 Duodenitis without bleeding; K44.9 Diaphragmatic hernia without obstruction or gangrene; I10 Essential (primary) hypertension; E78.5 Hyperlipidemia, unspecified; M19.90 Unspecified osteoarthritis, unspecified site; Z79.899 Other long term (current) drug therapy
CPT/HCPCS: 43239; 88305; 88342; J2001; J2704

== ENCOUNTER 2017-05-13 09:04 | Day surgery (SDC) | payer MEDICARE ==
[2017-05-13 09:53] VITALS: RESP 16; TEMP 97.7
[2017-05-13] MEDS ORDERED: LIDOCAINE 1% INJ 10MG/ML (20 ML MDV) ONE (10:30)
[2017-05-13] MEDS ORDERED: PROPOFOL 10 MG/ML 20 ML VIAL IV ONE (10:30)
--- NOTE | 2017-05-13 11:03 | P.PCN ---
Date of Procedure: 05/13/17 Preoperative Diagnosis: Postoperative Diagnosis: Procedure(s) Performed: Procedure: Esophagogastroduodenoscopy and biopsy. Preoperative diagnosis: History of esophagitis and early esophageal stricture and dysphagia. Postoperative diagnosis: Sliding hiatal hernia with short segments of [place]'s esophagus, but no evidence of strictures or acute esophagitis at this time. Preparation and sedation: Was provided by anesthesia. Brief clinical history: The patient is 71-year-old male who I have evaluated in the office in December of this year because of solid food dysphagia which he had on and off for the prior 2 months. An upper endoscopy performed in January showed hiatal hernia and distal esophagitis and early esophageal stricture as well as mild gastritis and minimal duodenitis. We intensified his medical therapy and he is now brought for reevaluation to rule out with confidence any significant pathology in the esophagus. The patient has been doing well on his current medical therapy and has not been having dysphagia anymore. Procedure: With the patient on his left lateral decubitus position and after informed consent and adequate sedation, I passed the Olympus-GIF 160 video upper endoscope through the cricopharyngeus down the esophagus. GE junction was around 35-36 cm from the incisors and there was a hiatal hernia measuring around 2-3 cm as previously described. The distal esophagus showed complete healing of the previously described broad erosions and superficial ulcerations and the edema and friability of the mucosa has completely improved and the polypoid area at the junction with the stomach was not obvious anymore. With the healing of the distal esophagitis, I noted a short segment of [place]'s esophagus which I did not appreciate previously. The early stricture did not seem to be an issue at this time either. The endoscope was then passed into the stomach which was insufflated with air and inspected in detail including the retroflex view in the cardia. No obvious abnormalities were seen in the stomach. Finally, the endoscope was passed into the pyloric channel and duodenum. Pyloric channel, duodenal bulb, post bulbar area and descending duodenum appeared within normal limits. I obtained multiple biopsies from the [place]'s segment then the endoscope was withdrawn. No dilation was indicated. The patient tolerated the procedure well. Plan: I summarized these findings to the patient and I suggested that we continue antireflux diet and measures and continue acid suppressive therapy. He will follow up with you as planned and I anticipate repeating this endoscopy in 2 years. Implants: Indications for Procedure: Operative Findings: Description of Procedure:
[2017-05-13 11:19] VITALS: BP 143/77; PULSE 50
== END 2017-05-13 11:40 | disposition home or self-care (01) ==
LOC: ORWHC2ENDO 09:04
DX: K22.70 Barrett's esophagus without dysplasia (principal); K44.9 Diaphragmatic hernia without obstruction or gangrene; Z87.19 Personal history of other diseases of the digestive system; M19.90 Unspecified osteoarthritis, unspecified site; I10 Essential (primary) hypertension; E78.5 Hyperlipidemia, unspecified; Z79.82 Long term (current) use of aspirin; Z79.899 Other long term (current) drug therapy
CPT/HCPCS: 88305; 43239; J2001; J2704

== ENCOUNTER → 2017-11-26 | Outpatient (CLI) | payer MEDICARE ==
--- NOTE | 2017-11-26 18:22 | CONS ---
CONSULTATION REASON FOR CONSULTATION: Sleep apnea. Yajaira is a 72-year-old male patient who is known to me; I have evaluated him in the past for obstructive sleep apnea. The patient was diagnosed having obstructive sleep apnea back in 2011. The patient was found to have an AHI of 72. He was offered CPAP therapy at a pressure of 10 cm of water. Over these past 6 years the patient has been very regularly using his CPAP. He woke up a few days back and his CPAP machine was completely nonfunctioning and was broken. Since then he has become more symptomatic, and he is coming in for further advice regarding a new CPAP machine. The patient wanted to update his CPAP machine. He has gained around 20 pounds since his original titration back in 2011. For now he is snoring and he is having apneas throughout the night and he has become much more somnolent and sleepy. Nevertheless, his treatment has been successful for the past 6 years. The patient has been very compliant with his CPAP machine without any interruptions. PAST MEDICAL HISTORY: 1. Obstructive sleep apnea with an AHI of 72, maintained on CPAP with a pressure of 10. 2. GERD. 3. Diverticulosis. 4. Obesity. 5. Hypertension. 6. BPH. 7. Hyperlipidemia. SURGICAL HISTORY: None. DRUG ALLERGIES: NOT KNOWN. OUTPATIENT MEDICATION LIST: 1. Lisinopril/hydrochlorothiazide 20/25 one tablet a day. 2. Zocor 20 mg p.o. daily. 3. Glucosamine chondroitin 1 tablet a day. 4. Metoprolol 25 mg p.o. daily. 5. Doxazosin 4 mg p.o. daily. 6. Aspirin 81 mg p.o. daily. 7. Omeprazole 20 mg p.o. daily. 8. Vitamin C 500 mg p.o. daily. 9. Vitamin D3 2000 units daily. SOCIAL HISTORY: Nonsmoker. No history of alcoholism. No history of IV drugs. FAMILY HISTORY: Negative for sleep apnea. REVIEW OF SYSTEMS: Twelve-point review of systems was done. He is going to bed around 10 p.m. and wakes up at 4:30 a.m. in the morning. He averages around 6-7 hours of sleep. He was feeling extremely well until he lost his CPAP machine. His weight is up by around 20 pounds. No sleep paralysis. No hallucinations. No cataplexy. No sleepwalking. No dry mouth. No anxiety or panic attacks. No heartburn. No depression. No claustrophobia. BP is 148/93, pulse 67, respirations 16, temperature 97.8, saturation 97% on room air. [place] score 6. Neck size 16. Weight is 246. Height is 5 feet 10 inches, BMI 35.2. GENERAL APPEARANCE: Calm, comfortable. Head is atraumatic, normocephalic. Neck is short, supple. Crowding of posterior pharynx. There is no goiter or neck masses. LUNGS: Clear to auscultation. HEART: Heart sounds are regular rate and rhythm. Normal S1, S2. No S3. No S4. No murmurs. ABDOMEN: Soft, nontender. No organomegaly. EXTREMITIES: No edema. No cyanosis or clubbing. SKIN: Negative for any wounds or ulceration. IMPRESSION: 1. Severe symptomatic obstructive sleep apnea with an AHI of 72, currently on CPAP pressure of 10. The patient is symptomatic, knowing that his machine is broken. 2. Obesity with interval 20-pound weight gain. Current BMI is up to 35. 3. Diverticulosis. 4. Gastroesophageal reflux disease. 5. Hypertension. 6. Benign prostatic hypertrophy. 7. Hyperlipidemia. PLAN: 1. Encourage weight loss. 2. We will offer this patient CPAP titration, during which he will be given a new CPAP machine. His mask needs to be updated. He is currently using a Mirage FX nose mask and we may be able to update him to an AirFit N10 or N20 nose mask. 3. I gave the patient a CPAP loaner for him to use until he undergoes his CPAP titration, and following that he will see me back in followup. MMODL / IJN: [id number] /
== END | disposition home or self-care (01) ==
LOC: SLEEP 16:15
PROVIDERS: ATTEND Internal Medicine Critical Care Medicine
DX: G47.33 Obstructive sleep apnea (adult) (pediatric) (principal); E66.9 Obesity, unspecified; Z68.35 Body mass index [BMI] 35.0-35.9, adult; K57.90 Diverticulosis of intestine, part unspecified, without perforation or abscess without bleeding; K21.9 Gastro-esophageal reflux disease without esophagitis; I10 Essential (primary) hypertension; N40.0 Benign prostatic hyperplasia without lower urinary tract symptoms; E78.5 Hyperlipidemia, unspecified; Z99.89 Dependence on other enabling machines and devices; Z79.82 Long term (current) use of aspirin; Z79.899 Other long term (current) drug therapy
CPT/HCPCS: 99211

== ENCOUNTER → 2018-05-20 | Outpatient (CLI) | payer MEDICARE ==
--- NOTE | 2018-05-20 15:04 | PN ---
PROGRESS NOTE A 72-year-old male patient coming in for further advice regarding his obstructive sleep apnea treatment. The patient has severe LEDA and this has been established and the patient has an AHI of 72. The patient underwent a CPAP titration and the patient was titrated to an APAP with a minimum pressure of 10 and a maximum pressure of 17. He was also offered a CFlex of 3. The mask that he was offered was an AirFit N20. Meanwhile, I offered this patient a CPAP machine which is set at a pressure of 10 cm of water and he has been using it throughout this time and he is into drop his loaner machine and start his new CPAP treatment. I checked his machine and the patient has a Dream Station Respironics unit within an APAP with a minimum pressure of 10 and maximum pressure of 17 with a CFlex of 3. Checked the rest of the settings and all is appropriate for now. Will initiate APAP treatment based on this. Note that the patient also demonstrated severe periodic limb movements. Resulting in some occasional sleep fragmentation. He is noted to have diverticulosis, hypertension, acid reflux. BPH and hyperlipidemia as comorbid conditions. His current [place] Score is 4 knowing that the patient utilizing the donor CPAP unit. REVIEW OF SYSTEMS: A 12-point review of system was done. Positive findings are mentioned in history of present illness. BP is 160/75, pulse 68, respirations 16, weight is 240, temperature 97.8, saturation 97% on room air. GENERAL APPEARANCE: Calm, comfortable. HEAD: Atraumatic, normocephalic. NECK: Supple. There is no JVD. No goiter or neck masses, Mallampati class IV. Lungs are clear to auscultation. Heart sounds are regular rate and rhythm. Normal S1, S2. No murmurs. ABDOMEN: Soft, nontender. No organomegaly. EXTREMITIES: No edema, cyanosis or clubbing. Neurologically patient is alert and oriented. There is no focal neurological deficits. PSYCHIATRIC: Negative for anxiety or depression. IMPRESSION: 1. Severe obstructive sleep apnea with an apnea-hypopnea index of 72, the patient was evaluated and currently utilizing an APAP minimum pressure of 10, maximum pressure of 17. 2. Severe periodic limb movements with occasional sleep fragmentation. 3. Obesity with a body mass index of 35, current weight is at 240. 4. Diverticulosis. 5. Hypertension. 6. Acid reflux. 7. Benign prostatic hypertrophy. 8. Hyperlipidemia. PLAN: 1. Initiate APAP treatment, the patient had a Dream Station, minimum pressure of 10, maximum pressure of 17 with a flex of 3. 2. Utilized Mirage FX versus an AirFit N20 nose mass. 3. Encourage weight loss. 4. See me back in 30 to 90 days to assess clinical response and compliance. The patient returned his loaner CPAP unit back to us and will continue to follow. MMODL / IJN: [id number] /
== END | disposition home or self-care (01) ==
LOC: SLEEP 11:31
PROVIDERS: ATTEND Internal Medicine Critical Care Medicine
DX: Z53.9 Procedure and treatment not carried out, unspecified reason (principal)

== ENCOUNTER → 2018-07-22 | Outpatient (CLI) | payer MEDICARE ==
--- NOTE | 2018-07-22 20:07 | SFUN ---
SLEEP CENTER FOLLOW UP NOTE This is a 72-year-old male patient who is coming in for a followup regarding obstructive sleep apnea treatment. The patient has severe LEDA with an AHI of 72, and the patient was given a APAP, minimum pressure of 10 and maximum pressure of 17. He also demonstrated severe periodic limb movements and sleep fragmentation. Overall the patient is doing well. He has no specific complaints. On today's evaluation, the patient has been using a Mirage FX nose mask. He is benefiting from the treatment. He is waking up refreshed and alert during the day. He has been averaging 5.3 hours of CPAP use every night and his AHI while on treatment is down to 3.5. No periodic breathing. The P90 pressure is at 12.6, [place] score is down to 6. REVIEW OF SYSTEMS: 12-point review of system was done. Positive findings are mentioned in history of present illness. PHYSICAL EXAMINATION: BP is 139/75, pulse 66, respirations 16, temperature is 97.8, weight is 242, saturation 97% on room air. [place] score 6. GENERAL APPEARANCE: Calm, comfortable. Head is atraumatic, normocephalic. NECK: Supple. No JVD. No goiter or neck mass. LUNGS: Clear to auscultation. HEART: Sounds regular rhythm. Normal S1, S2. No S3, S4. No murmurs. ABDOMEN: Soft, nontender. No organomegaly. EXTREMITIES: No edema. No cyanosis or clubbing. IMPRESSION: 1. Severe obstructive sleep apnea with an AHI of 72, currently on a APAP. 2. Obesity with a BMI of 35. 3. Periodic limb movements. 4. Diverticulosis. 5. Hypertension. 6. Benign prostatic hypertrophy. 7. Acid reflux. 8. Hyperlipidemia. PLAN: 1. I am going to suggest. Switching this patient to a DreamWear medium-sized nose mask. 2. Continue APAP at same level of pressure. 3. Treatment was successful. Encourage weight loss. Implement good sleep hygiene measures and see me back in a year's time or earlier if needed. MMODL / IJN: [id number] /
== END | disposition home or self-care (01) ==
LOC: SLEEP 14:21
PROVIDERS: ATTEND Internal Medicine Critical Care Medicine
DX: G47.33 Obstructive sleep apnea (adult) (pediatric) (principal); E66.9 Obesity, unspecified; G47.61 Periodic limb movement disorder; K57.90 Diverticulosis of intestine, part unspecified, without perforation or abscess without bleeding; I10 Essential (primary) hypertension; N40.0 Benign prostatic hyperplasia without lower urinary tract symptoms; K21.9 Gastro-esophageal reflux disease without esophagitis; E78.5 Hyperlipidemia, unspecified; Z68.35 Body mass index [BMI] 35.0-35.9, adult; Z99.89 Dependence on other enabling machines and devices

== ENCOUNTER → 2019-07-14 | Outpatient (CLI) | payer MEDICARE ==
--- NOTE | 2019-07-14 16:11 | PN ---
PROGRESS NOTE This is a 73-year-old male patient coming in for an annual check. He has severe LEDA with an AHI of 72. He is using a Dream Station. He is using a DreamWear [id number] small-sized nose mask. His current setting is APAP minimum of 10, maximum of 17. While on treatment, the patient has done extremely well. I checked his compliancy data. The patient has utilized his machine every night. He is utilizing his machine for more than 4 hours 100% of the time with an average pressure of 11.4. He is averaging around 7.2 hours of CPAP use per night and no periodic breathing and the mask fit is 100%. His AHI is down to 2.3. His weight currently is 240, which is essentially stable compared to last year. He is refreshed and alert during the day. No nasal congestion. No headaches. No fatigue, tiredness or sleepiness during the day. No cough or sputum production. No nocturnal heartburn. No episodes of falling asleep while driving his car or during routine day-to-day activities. The patient is being treated successfully for now. REVIEW OF SYSTEMS: Fourteen-point review of systems was done. Positive findings were all mentioned above in the history of present illness. PHYSICAL EXAMINATION: VITAL SIGNS: BP is 162/83, pulse 83, respirations 16, temperature 97.8, saturation 96% on room air. Height is 5 feet 9 inches, weight 240. [place] score is 5. BMI is 35.2. GENERAL APPEARANCE: Calm, comfortable. HEAD: Atraumatic, normocephalic. NECK: Supple. No JVD. No goiter or neck masses. Mallampati IV. LUNGS: Clear to auscultation. HEART: Heart sounds are regular rate and rhythm. Normal S1, S2. No S3, S4. No murmurs. ABDOMEN: Soft, nontender. No organomegaly. EXTREMITIES: No edema. No cyanosis or clubbing. NEUROLOGIC: Awake and alert. There is no focal neurological deficit. PSYCHIATRIC: Negative for anxiety or depression. IMPRESSION: 1. Severe obstructive sleep apnea; apnea/hypopnea index of 72, currently on APAP with excellent clinical response and compliance. Average pressure on the DreamWear Station is 11.4. His resulting AHI while on treatment is down to 2.3. 2. Hypersomnia, recovered. 3. Obesity. Weight is stable. BMI 35. 4. Hyperlipidemia. 5. Hypertension. 6. Benign prostatic hypertrophy. 7. Diverticulosis. 8. History of periodic limb movement activity. PLAN: 1. Keep the same pressure setting. 2. Encourage weight loss. 3. Continue using the DreamWear [id number] small-sized nose piece. 4. See me back in a year's time, earlier if needed. For now his treatment is successful. MMODL / IJN: [id number] /
== END | disposition home or self-care (01) ==
LOC: SLEEP 14:58
PROVIDERS: ATTEND Internal Medicine Critical Care Medicine
DX: G47.33 Obstructive sleep apnea (adult) (pediatric) (principal); E66.9 Obesity, unspecified; Z68.35 Body mass index [BMI] 35.0-35.9, adult; E78.5 Hyperlipidemia, unspecified; I10 Essential (primary) hypertension; N40.0 Benign prostatic hyperplasia without lower urinary tract symptoms; K57.90 Diverticulosis of intestine, part unspecified, without perforation or abscess without bleeding; Z87.39 Personal history of other diseases of the musculoskeletal system and connective tissue

== ENCOUNTER 2020-11-13 15:31 | Emergency (ER) | payer MEDICARE ==
[2020-11-13 15:36] VITALS: RESP 18; TEMP 98.2
[2020-11-13] MEDS ORDERED: BACITRACIN OINT 1 EACH PACKET TOPICAL ONE (15:41)
--- NOTE | 2020-11-13 15:47 | ED ---
Wound/Laceration HPI - General Chief Complaint: Wound/Laceration Stated Complaint: R Finger Injury Time Seen by Provider: 11/13/20 15:39 Source: patient Mode of arrival: ambulatory Limitations: no limitations - History of Present Illness Initial Comments: 75-year-old male patient presents to the emergency department today for evaluation of injury to the right little finger. Patient states he got it caught in a log splitter. Patient had his hand in ice. States he has no feeling to the tip of the finger. He states his last tetanus vaccine was a cou ple of years ago. Denies any other injuries. Does take an aspirin but denies any other blood thinning medications. Patient denies any headache, neck pain, back pain, chest pain, shortness of breath, dizziness, weakness, abdominal pain, nausea, vomiting, or difficulties with bowel movements or urination. - Related Data Home Medications Medication Instructions Recorded Confirmed Ascorbic Acid [Vitamin C] 500 mg PO DAILY 01/27/17 05/13/17 Aspirin [Adult Low Dose Aspirin EC] 81 mg PO DAILY 01/27/17 05/13/17 Doxazosin [Cardura] 4 mg PO BID 01/27/17 05/13/17 Glucosamine Sulfate 500 mg PO DAILY 01/27/17 05/13/17 Lisinopril-Hctz 20-25 mg 1 tab PO QAM 01/27/17 05/13/17 [Zestoretic 20-25] Metoprolol Succinate [Toprol XL] 25 mg PO QAM 01/27/17 05/13/17 Simvastatin [Zocor] 20 mg PO HS 01/27/17 05/13/17 Previous Rx's Medication Instructions Recorded Cephalexin [Keflex] 500 mg PO BID #14 cap 11/13/20 Allergies Allergy/AdvReac Type Severity Reaction Status Date / Time No Known Allergies Allergy Verified 11/13/20 15:36 Review of Systems ROS Statement: Those systems with pertinent positive or pertinent negative responses have been documented in the HPI. ROS Other: All systems not noted in ROS Statement are negative. Past Medical History Past Medical History: Hyperlipidemia, Hypertension, Osteoarthritis (OA) Additional Past Medical History / Comment(s): GASTRITIS.(JANUARY 2017). IP ADM IN DECEMBER 2016 for diverticulitis History of Any Multi-Drug Resistant Organisms: None Reported Past Surgical History: No Surgical Hx Reported Additional Past Surgical History / Comment(s): colonoscopy & EGD. SAM Past Anesthesia/Blood Transfusion Reactions: No Reported Reaction Past Psychological History: No Psychological Hx Reported Smoking Status: Never smoker Past Alcohol Use History: Occasional Past Drug Use History: None Reported - Past Family History Mother Family Medical History: No Reported History, Diabetes Mellitus Additional Family Medical History / Comment(s): History of heart problems. Father Family Medical History: Cancer Additional Family Medical History / Comment(s): with cancer. General Exam Limitations: no limitations General appearance: alert, in no apparent distress, other (Physical well- developed, well-nourished, adult male patient in no acute distress. Vital signs upon presentation are temperature 98.2F, pulse 88, respirations 18, blood pressure 171/80, pulse ox 99% on room air.) Respiratory exam: Present: normal lung sounds bilaterally. Absent: respiratory distress, wheezes, rales, rhonchi, stridor Cardiovascular Exam: Present: regular rate, normal rhythm, normal heart sounds. Absent: systolic murmur, diastolic murmur, rubs, gallop, clicks Extremities exam: Present: full ROM, normal capillary refill, other (There is soft tissue swelling, ecchymosis, and pallor to the left little finger. There is skin avulsion injury to the dorsal and palmar aspect. No cap refill to the tip of the finger. No ROM. ). Absent: normal inspection, tenderness, pedal edema, joint swelling, calf tenderness Course Vital Signs 11/13/20 11/13/20 11/13/20 15:33 16:36 17:00 Temperature 98.2 F Pulse Rate 88 75 75 Respiratory 18 18 18 Rate Blood Pressure 171/80 163/92 163/92 O2 Sat by Pulse 99 97 97 Oximetry 11/13/20 11/13/20 18:00 18:05 Temperature 98.2 F Pulse Rate 75 75 Respiratory 18 18 Rate Blood Pressure 168/88 168/88 O2 Sat by Pulse 97 97 Oximetry - Reevaluation(s) Reevaluation #1: 11/13/20 17:25 Dr. Vázquez was contacted via telephone, and discussed the case. He was able to come down and evaluate the patient. He is currently in the room cleansing the wound, splinting the hand. 11/13/20 18:17 Medical Decision Making - Medical Decision Making 75-year-old male patient presented to the emergency department today for evaluation of injury to the right little finger. Patient hit his finger while using a wood splitter. Physical examination did reveal extensive swelling over the entirety of the right little finger. Head laceration to the lateral aspect. Tip of the finger was cold, patient had no feeling, there is no Refill. X- rays were obtained and showed a multiple x-rays to the distal and middle phalanx. Case was discussed with informatics specialist Dr. Vázquez who did come down to evaluate the patient. He cleansed the wound and applied a splint. Patient will be discharged and plan is to follow-up in the office outpatient. Patient was started on antibiotics. Dr. Dyer a prescription for [place]. Patient is agreeable with this plan. Case discussed with my attending Dr. Burton. - Radiology Data Radiology results: report reviewed, image reviewed 33 views of the right little finger obtained. Report was reviewed in its entirety. Impression by Dr. Zamarripa shows displaced fracture of the tuft of the distal phalanx, nondisplaced transverse fracture across the base of the middle phalanx of the little finger right hand is also intra-articular chip fracture of the base of the distal phalanx and the structures probably old. Disposition Clinical Impression: Fracture of phalanx of right little finger, Laceration of right little finger Disposition: HOME SELF-CARE Condition: Good Instructions (If sedation given, give patient instructions): Laceration (ED), Finger Fracture (ED) Additional Instructions: Leave splint in place. Follow-up with orthopedics as directed. Complete antibiotic prescription and full. Take pain medications as directed. Return to the emergency department for any new, worsening, or concerning symptoms. Prescriptions: Cephalexin [Keflex] 500 mg PO BID #14 cap Is patient prescribed a controlled substance at d/c from ED?: No Referrals: Vilma Vázquez DO [Doctor of Osteopathic Medicine] - 1-2 days Maria E Lawler DO [Primary Care Provider] - 1-2 days Manuel Toribio DO [Doctor of Osteopathic Medicine] - 11/14/20 8:00 am (Follow-up with Dr. Blake [facility] tomorrow on November 14 Please call [phone] for appointment) Time of Disposition: 17:48
--- NOTE | 2020-11-13 16:22 | XR ---
EXAMINATION TYPE: XR finger RT DATE OF EXAM: 11/13/2020 COMPARISON: None. Technique 3 views There is nondisplaced fracture of the tuft of the distal phalanx of the little finger. There is nond isplaced transverse fracture across the base of the middle phalanx of the little finger right hand. T here is intra-articular chip fracture of the base of the distal phalanx and this fracture is probably old. There is some deformity of the head of the fifth metacarpal that probably relates to an old healed fr acture. IMPRESSION: Fractures as above. Osteoarthritis at the DIP joint.
[2020-11-13 16:58] VITALS: PULSE 75
--- NOTE | 2020-11-13 17:56 | P.CNOR ---
History of Present Illness - [facility] Consult date: 11/13/20 Consult reason: fracture History of present illness: Patient is a very pleasant 75-year-old male seen and examined today at bedside in the emergency room. The patient was working splitting some [employer] and unfortunate had his small finger on his right hand caught in the mechanism between the long and the splinter. He had a significant crush injury. He was wearing gloves. He is right-hand dominant. 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 The injury involves his right small finger did not involve any other fingers or any remainder of his hand. He presented to the emergency room. We are asked to see him in this regard. They noted significant duskiness of his fingertip and bleeding and he was found have multiple fractures at its middle and distal phalanx of his right small finger. His nail bed was intact. Review of Systems He denies any other injury. Denies any problems with his other fingers. He is right-hand dominant and works as a jarrett. He is active in golf and bowling hand golf and multiple other activities. He denies any current chest pain shortness breath. Denies any prior injury to his right hand or fingers. Past Medical History Past Medical History: Hyperlipidemia, Hypertension, Osteoarthritis (OA) Additional Past Medical History / Comment(s): GASTRITIS.(JANUARY 2017). IP ADM IN DECEMBER 2016 for diverticulitis History of Any Multi-Drug Resistant Organisms: None Reported Past Surgical History: No Surgical Hx Reported Additional Past Surgical History / Comment(s): colonoscopy & EGD. LASIK Past Anesthesia/Blood Transfusion Reactions: No Reported Reaction Past Psychological History: No Psychological Hx Reported Smoking Status: Never smoker Past Alcohol Use History: Occasional Past Drug Use History: None Reported - Past Family History Mother Family Medical History: No Reported History, Diabetes Mellitus Additional Family Medical History / Comment(s): History of heart problems. Father Family Medical History: Cancer Additional Family Medical History / Comment(s): with cancer. Medications and Allergies Home Medications Medication Instructions Recorded Confirmed Type Ascorbic Acid [Vitamin C] 500 mg PO DAILY 01/27/17 05/13/17 History Aspirin [Adult Low Dose Aspirin EC] 81 mg PO DAILY 01/27/17 05/13/17 History Doxazosin [Cardura] 4 mg PO BID 01/27/17 05/13/17 History Glucosamine Sulfate 500 mg PO DAILY 01/27/17 05/13/17 History Lisinopril-Hctz 20-25 mg 1 tab PO QAM 01/27/17 05/13/17 History [Zestoretic 20-25] Metoprolol Succinate [Toprol XL] 25 mg PO QAM 01/27/17 05/13/17 History Simvastatin [Zocor] 20 mg PO HS 01/27/17 05/13/17 History Allergies Allergy/AdvReac Type Severity Reaction Status Date / Time No Known Allergies Allergy Verified 11/13/20 15:36 Physical Examination Osteopathic Statement: *. No significant issues noted on an osteopathic structural exam other than those noted in the History and Physical/Consult. - Wrist & Hand right Location of pain: small finger (This event swelling his right small finger. There are 2 puncture type wounds at the medial and lateral aspect of the distal phalanx approximately 2 mm in length each. The nailbed is intact. There is significant blistering with bloody blisters at the volar aspect of the middle and distal finger. ), other (At the small finger there is duskiness at the volar distal tip. There is still some capillary refill at the nail bed. And at the medial and lateral aspects of the nail. The compartments are swollen but soft. He has minimal motion to the area. He is still able have some sensation but it is dull.) Small finger pain modifiers: other (The remainder of his hand is nontender to palpation range of motion. His compartments are soft. There is no streaking up his palm. He is nontender over his MCP joint or proximal phalanx.) Results - Diagnostic results Wrist/Hand x-ray: report reviewed, image reviewed (X-rays of the hand show multiple comminuted fractures at the base of the middle phalanx as well as the base of the distal phalanx with involvement of a Nicol one third of the joint. There is also a fracture at the shaft of the distal phalanx toward the tuft.) Assessment and Plan Assessment: Crush fracture injury of the small finger of the right hand Open fracture of the distal phalanx right small finger Intra-articular DIP fracture with comminuted fractures at the middle and distal phalanx right small finger Tenuous vascular supply at the right distal tuft of the small finger Plan: Crush fracture injury of the small finger of the right hand Open fracture of the distal phalanx right small finger Intra-articular DIP fracture with comminuted fractures at the middle and distal phalanx right small finger Tenuous vascular supply at the right distal tuft of the small finger Today at bedside I performed a irrigation copiously of the right small finger open fracture. There are small lacerations at the medial and lateral aspect of the distal phalanx and this was copiously irrigated. There is still some bleeding at those areas. The nailbed is intact. The skin at the distal tuft is somewhat dusky but there is still some The refill at the nail bed. There are some blisters filled with blood at the dorsal surface of the small finger. It is somewhat difficult to tell if there is significant vascular spasm or partial obliteration of the vascular supply to the small finger. There are multiple comminuted fractures at the middle and distal phalanx. It is difficult to determine if these would be able to be reduced and fixated but seems somewhat unlikely given the small fragmentation. With a crush injury the patient is in danger of losing his small finger and having to undergo an amputation. Other options would be to try to perform open reduction and internal fixation with exploration of the basilar supply. The patient would much prefer amputation to any complex procedure. There is still some vascular supply at the distal tip of the small finger. Certainly there will be some vascular spasm but is difficult to determine the extent of the vascular damage in total. The area is dusky and I think we can give it a little bit of time to see if it will declare itself as to whether or not it will be viable. If he shows that there is too much vascular damage and it is nonviable at the distal aspect then he could potentially have an amputation as an outpatient. If there is good viability he may need some soft tissue procedures but we can ultimately do wound care on an outpatient basis as well. I think it is okay for the patient is discharged home today with close follow-up tomorrow with our office. We will have him see our hand specialists at the office for continued management and possible intervention as needed. I discussed this with him at length. I discussed the risk of occasions alternatives and benefits and he seems to agree and understand. He is placed in a well-padded well molded ulnar gutter splinting include his ring and small fingers on the right side. The wound was irrigated and then copiously and it appears to have a clean bed. We will follow him up tomorrow. I discussed this with the house staff at the emergency room and they understand. Time with Patient: Greater than 30
[2020-11-13 18:10] VITALS: BP 168/88
== END 2020-11-13 18:07 | disposition home or self-care (01) ==
LOC: EC 15:31
DX: S62.656A Nondisplaced fracture of middle phalanx of right little finger, initial encounter for closed fracture (principal); S61.216A Laceration without foreign body of right little finger without damage to nail, initial encounter; E78.5 Hyperlipidemia, unspecified; I10 Essential (primary) hypertension; M19.90 Unspecified osteoarthritis, unspecified site; Z79.82 Long term (current) use of aspirin; Z79.899 Other long term (current) drug therapy; W29.3XXA Contact with powered garden and outdoor hand tools and machinery, initial encounter
CPT/HCPCS: 73140; 99283; 96365; 29125; J0690

== ENCOUNTER → 2021-01-10 | Outpatient (CLI) | payer MEDICARE ==
--- NOTE | 2021-01-10 18:25 | PN ---
PROGRESS NOTE Yajaira is coming in for an annual check regarding his obstructive sleep apnea. The patient has a case of severe LEDA with an AHI of 72 and the patient carries an APAP at a pressure minimum of 10, maximum of 17 cm of water. Since his last evaluation, the patient had a bout of C difficile colitis and he was treated with oral vancomycin and lost a considerable amount of weight. His current weight is down to 226. He also had accidental amputation of his right fifth digit; the tip was amputated by a wood saw. Otherwise, no other new-onset comorbidities. The patient has been utilizing his CPAP on a regular basis. Based on his 30-day compliancy, the patient has been utilizing his machine every night and he has achieved more than 4 hours more than 95% of the time. His average CPAP use is around 6.7 hours per night. He has an excellent mask fit which is above 91% and his AHI is down to 2.9. No periodic breathing and his average pressure delivered by the CPAP machine is around 11.4. His current [place] score is 4. No new complaints otherwise for now. MEDICATIONS: His medication list includes: 1. Lisinopril/hydrochlorothiazide 20/25 one tablet per day. 2. Zocor 20 daily. 3. Glucosamine 1 tablet a day. 4. Metoprolol 25 daily. 5. Doxazosin 4 daily. 6. Aspirin 81 daily. 7. Vitamin C. 8. Omeprazole 20 mg p.o. daily. 9. Iron. 10.Vitamin D. SOCIAL HISTORY: Nonsmoker. No history of alcoholism. No history of IV drugs. REVIEW OF SYSTEMS: Fourteen-point review of systems was done. Positive findings are all mentioned above in the history of present illness. PHYSICAL EXAMINATION: VITAL SIGNS: BP is 172/88, pulse 60, respirations 16, temperature 97.8, saturation 99% on room air. Height is 5 feet 11 inches. Weight is 224. [place] score is 4. BMI is 31.7. GENERAL APPEARANCE: Calm, comfortable. HEAD: Atraumatic, normocephalic. NECK: Supple. Mallampati class IV. There is no goiter or neck masses. LUNGS: Diminished; otherwise clear. HEART: Heart sounds are regular rate and rhythm. Normal S1, S2. No S3, S4. No murmurs. ABDOMEN: Soft, nontender. No organomegaly. EXTREMITIES: No edema. No cyanosis or clubbing. NEUROLOGIC: Awake and alert. There is no focal neurological deficit. IMPRESSION: 1. Severe obstructive sleep apnea, AHI of 72, currently on APAP. The patient has a Dream Station and is currently utilizing an APAP at a pressure minimum of 10, maximum of 17 cm of water. 2. Obesity with interval weight loss secondary to C difficile colitis. Current weight is down to 226. 3. C difficile colitis, recovered. 4. Diverticulosis. 5. Acid reflux. 6. 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 7. Hypertension. 8. Benign prostatic hypertrophy. 9. Hyperlipidemia. PLAN: Keep the same pressure setting. Average pressure delivered by the CPAP machine is around 11.1. Adequately treated. The patient is compliant. [place] score is down to 4. Encourage further weight loss. Maintain good sleep hygiene measures. See me back in a year's time in followup, earlier if needed. MMODL / IJN: [id number] /
== END ==
LOC: SLEEP 15:19
PROVIDERS: ATTEND Internal Medicine Critical Care Medicine
DX: G47.33 Obstructive sleep apnea (adult) (pediatric) (principal); E66.9 Obesity, unspecified; I10 Essential (primary) hypertension; N40.0 Benign prostatic hyperplasia without lower urinary tract symptoms; K21.9 Gastro-esophageal reflux disease without esophagitis; E78.5 Hyperlipidemia, unspecified; K57.90 Diverticulosis of intestine, part unspecified, without perforation or abscess without bleeding; Z87.891 Personal history of nicotine dependence

== ENCOUNTER → 2022-01-16 | Outpatient (CLI) | payer MEDICARE ==
--- NOTE | 2022-01-16 15:57 | P.PN ---
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 The patient is coming in for annual checkup regarding his obstructive sleep apnea. The patient is using a dream station which is a [employer] unit and the patient is in a APAP mode at the pressure minimum of 10 and a maximum of 17 and the patient is using a dreamware nasal mask. the patient denies having any complaints. He is aware that his machine is currently on a recall and he is not having any issues and will be continuing the same machine till a new machine is delivered to him. In any rate, check the compliance data. The patient is been averaging about 6.4 hours of CPAP use per night. His P90 pressure is at 11 cm of water. His AHI is down to 2.8. No periodic breathing. Mask fit is good. He is using the machine every night and continues to benefit after treatment. No new onset medical problems and comorbidities. He was having issues with C. diff colitis and the patient lost significant amount of weight. He regained the weight back and currently is running around 240 pounds. No angina. No palpitation. No nighttime chest pain or shortness of breath or any heartburn. He is waking up refreshed during the day. No morning headaches. No drowsiness or sleepiness during the day. His current [place] scores of 5. Objective - Exam BP is 165/73, pulse is 78, respirations 16, temperature is 97.6 and the patient's oxygen saturations around 97% on room air oxygen. The patient's [place] scores of 5. The patient appeared well nourished and normally developed. Vital signs as documented. Head exam is unremarkable. No scleral icterus or corneal arcus noted. Neck is without jugular venous distension, thyromegaly, or carotid bruits. Carotid upstrokes are brisk bilaterally. Lungs are clear to auscultation and percussion. Cardiac exam reveals the PMI to be normally sized and situated. Rhythm is regular. First and second heart sounds normal. No murmurs, rubs or gallops. Abdominal exam reveals normal bowel sounds, no masses, no organomegaly and no aortic enlargement. Extremities are nonedematous and both femoral and pedal pulses are normal. Examination of the skin revealed no evidence of significant rashes, suspicious appearing nevi or other concerning lesions.Neurologically, the patient is awake and alert and the patient does not have any focal neurological deficit. Cranial nerves are essentially intact. Assessment and Plan Plan: 1 severe symptomatically obstructive sleep apnea with an AHI of 72. The patient continues to receive successful treatment with an APAP, 10-17 cm of water 2 chronic hypersomnia, improved with CPAP therapy 3 obesity, current weight is up to 240 pounds 4 C. diff colitis, recovered 5 Diverticulosis 6 hypertension 7 hyperlipidemia 8 history reflux 9 BPH plan Continue CPAP therapy at the same level of pressure Keep the patient on a dreamware nasal mask encourage weight loss Treatment is successful Composite check was done See me back in one year for follow-up
== END ==
LOC: SLEEP 15:15
PROVIDERS: ATTEND Internal Medicine Critical Care Medicine
DX: G47.33 Obstructive sleep apnea (adult) (pediatric) (principal); E66.9 Obesity, unspecified; Z99.89 Dependence on other enabling machines and devices; E78.5 Hyperlipidemia, unspecified; I10 Essential (primary) hypertension; N40.0 Benign prostatic hyperplasia without lower urinary tract symptoms; A04.72 Enterocolitis due to Clostridium difficile, not specified as recurrent; Z87.19 Personal history of other diseases of the digestive system